=== PATIENT | female | born 1955 | race American Indian/Alaskan Native ===

== ENCOUNTER 2016-03-20 10:29 | Outpatient (CLI) | payer OTHER ==
[2016-03-20 11:21] LABS: ALKFISH SCANNED INTO MED REC; Epidermal Growth Factor Recept SCANNED INTO MED REC
== END 2016-03-20 10:30 | disposition home or self-care (01) ==
LOC: LABHHL 10:29
PROVIDERS: ATTEND Internal Medicine Hematology & Oncology
DX: C76.0 Malignant neoplasm of head, face and neck (principal)
CPT/HCPCS: 81235; 88271; 88275; 88291